=== PATIENT | female | born 1935 | race Asian ===

== ENCOUNTER 2019-06-08 10:36 | Outpatient (CLI) | payer OTHER | END 2019-06-09 05:49 | disposition home or self-care (01) | LOC: CT 10:36 | DX: I10 Essential (primary) hypertension (principal); R68.89 Other general symptoms and signs; F03.90 Unspecified dementia, unspecified severity, without behavioral disturbance, psychotic disturbance, mood disturbance, and anxiety ==

== ENCOUNTER 2019-12-01 07:02 | Outpatient (CLI) | payer OTHER ==
[2019-12-01] MEDS ORDERED: NAMENDA5 MG PO (09:06)
[2019-12-01] MEDS ORDERED: ROSUVASTATIN CA40 MG PO (09:07)
[2019-12-01] MEDS ORDERED: DILTIAZEM HCL240 M2 PO (09:09)
== END 2019-12-01 07:05 | disposition short-term general hospital (02) ==
LOC: AMB 07:02
DX: S09.90XA Unspecified injury of head, initial encounter (principal); R51 Headache; W18.39XA Other fall on same level, initial encounter; Y92.89 Other specified places as the place of occurrence of the external cause
CPT/HCPCS: A0425; A0429

== ENCOUNTER 2019-12-01 07:08 | Observation (INO) | payer OTHER ==
[2019-12-01] VITALS (10 sets, daily range): BP systolic 95–146; BP diastolic 58–85; TEMP 97.7–98.5; Ht 167.6 cm; Wt 55.8 kg
[~2019-12-01] VITALS: Ht 167.6 cm; Wt 55.8 kg
[2019-12-01 07:36] LABS: PLATELET COUNT 182 K/uL (152-353)
[2019-12-01 07:42] LABS: POTASSIUM 2.8 mmol/L (3.6-5.2)
[2019-12-01 07:51] LABS: PARTIAL THROMBOPLASTIN TIME 25.4 SECONDS (24.5-33.6)
[2019-12-01] MEDS ORDERED: NAMENDA5 MG PO (09:06)
[2019-12-01] MEDS ORDERED: ROSUVASTATIN CA40 MG PO (09:07)
[2019-12-01] MEDS ORDERED: DILTIAZEM HCL240 M2 PO (09:09)
[2019-12-02] VITALS: BP 152/82; TEMP 98.7
[2019-12-02 04:00] VITALS: BP 149/77; TEMP 98.9
[2019-12-02 04:48] LABS: PLATELET COUNT 154 K/uL (152-353)
[2019-12-02 05:13] LABS: POTASSIUM 3.5 mmol/L (3.6-5.2)
[2019-12-02 08:22] VITALS: BP 142/86; TEMP 98.3
== END 2019-12-02 17:41 | disposition home or self-care (01) ==
LOC: ED 07:12 → MED/SURG 09:25
PROVIDERS: Hospitalist; ADMIT Internal Medicine
PROC: 0HQ0XZZ Repair Scalp Skin, External Approach (ICD-10-PCS; principal; 2019-12-01)
DX: S01.01XA Laceration without foreign body of scalp, initial encounter (principal); E87.6 Hypokalemia; I25.10 Atherosclerotic heart disease of native coronary artery without angina pectoris; I10 Essential (primary) hypertension; E78.49 Other hyperlipidemia; J44.9 Chronic obstructive pulmonary disease, unspecified; M15.8 Other polyosteoarthritis; R55 Syncope and collapse; G31.84 Mild cognitive impairment of uncertain or unknown etiology; N39.0 Urinary tract infection, site not specified; E86.0 Dehydration; R62.7 Adult failure to thrive; W01.198A Fall on same level from slipping, tripping and stumbling with subsequent striking against other object, initial encounter; Y92.091 Bathroom in other non-institutional residence as the place of occurrence of the external cause
CPT/HCPCS: 36415; 80048; 80053; 81000; 82533; 82550; 83880; 84443; 84484; 85027; 85610; 85730; 93005; 93306; 99220; 99284; G0378; J1650

== ENCOUNTER 2019-12-04 13:20 | Outpatient (CLI) | payer OTHER ==
[~2019-12-04 13:20] MED LIST: DILTIAZEM HCL240 M2 PO; NAMENDA5 MG PO; ROSUVASTATIN CA40 MG PO
== END 2019-12-04 19:47 | disposition home or self-care (01) ==
LOC: MAMMO 13:20
DX: Z85.3 Personal history of malignant neoplasm of breast (principal)
CPT/HCPCS: G0279

== ENCOUNTER 2019-12-07 09:38 | Emergency (ER) | payer OTHER ==
[~2019-12-07] VITALS: Ht 157.5 cm; Wt 51.7 kg
[2019-12-07 10:35] VITALS: BP 117/61; TEMP 97.3
== END 2019-12-07 10:35 | disposition home or self-care (01) ==
LOC: ED 09:38
DX: Z48.02 Encounter for removal of sutures (principal)

== ENCOUNTER 2020-08-16 10:05 | Outpatient (CLI) | payer OTHER | END 2020-08-17 00:37 | disposition home or self-care (01) | LOC: MRI 10:05 | DX: R41.3 Other amnesia (principal); I10 Essential (primary) hypertension; E78.49 Other hyperlipidemia ==

== ENCOUNTER 2020-08-20 09:38 | Emergency (ER) | payer OTHER ==
[~2020-08-20] VITALS: Ht 170.2 cm; Wt 63.5 kg
[2020-08-20 10:43] VITALS: BP 144/72; TEMP 98.7
== END 2020-08-20 10:43 | disposition home or self-care (01) ==
LOC: ED 09:38
DX: H40.89 Other specified glaucoma (principal)
CPT/HCPCS: 99282

== ENCOUNTER 2020-12-23 09:45 | Outpatient (CLI) | payer OTHER | END 2020-12-23 21:50 | disposition home or self-care (01) | LOC: MAMMO 09:45 | PROVIDERS: ATTEND Nurse Practitioner Family | DX: Z12.31 Encounter for screening mammogram for malignant neoplasm of breast (principal); N64.59 Other signs and symptoms in breast | CPT/HCPCS: G0279 ==

== ENCOUNTER 2021-10-25 06:57 | Emergency (ER) | payer OTHER ==
[~2021-10-25] VITALS: Ht 165.1 cm; Wt 56.7 kg
[2021-10-25 07:05] VITALS: TEMP 98.3
[2021-10-25 08:21] VITALS: BP 152/69
== END 2021-10-25 08:21 | disposition home or self-care (01) ==
LOC: ED 06:57
DX: H10.89 Other conjunctivitis (principal)
CPT/HCPCS: 99282

== ENCOUNTER 2022-01-23 09:02 | Outpatient (CLI) | payer OTHER | END 2022-01-23 19:00 | disposition home or self-care (01) | LOC: MAMMO 09:02 | PROVIDERS: ATTEND Nurse Practitioner Family | DX: Z12.31 Encounter for screening mammogram for malignant neoplasm of breast (principal); N64.89 Other specified disorders of breast | CPT/HCPCS: G0279 ==

== ENCOUNTER 2022-05-07 06:56 | Emergency (ER) | payer OTHER ==
[~2022-05-07] VITALS: Ht 165.1 cm; Wt 56.7 kg
[2022-05-07 06:56] VITALS: TEMP 97.6
[2022-05-07 07:16] LABS: PLATELET COUNT 142 K/uL (152-353)
[2022-05-07 07:27] LABS: POTASSIUM 3.3 mmol/L (3.6-5.2)
[2022-05-07 07:37] LABS: PARTIAL THROMBOPLASTIN TIME 25.8 SECONDS (24.5-33.6)
[2022-05-07] MEDS ORDERED: K-TAB20 MEQ PO (09:08)
[2022-05-07 09:25] VITALS: BP 149/90
== END 2022-05-07 09:40 | disposition home or self-care (01) ==
LOC: ED 06:56
PROVIDERS: Hospitalist
DX: R10.84 Generalized abdominal pain (principal); E87.6 Hypokalemia; M51.36 Other intervertebral disc degeneration, lumbar region; W06.XXXA Fall from bed, initial encounter; Y92.89 Other specified places as the place of occurrence of the external cause
CPT/HCPCS: 80053; 81002; 83690; 85027; 85610; 85730; 96360; 96361; 96374; 96375; 99284; J1885; J2405; Q9963

== ENCOUNTER 2022-10-20 11:47 | Emergency (ER) | payer OTHER ==
[~2022-10-20] VITALS: Ht 165.1 cm; Wt 56.7 kg
[2022-10-20 11:47] VITALS: TEMP 97.7
[~2022-10-20 11:47] MED LIST changes: +K-TAB20 MEQ PO
[2022-10-20 12:46] LABS: PLATELET COUNT 151 K/uL (152-353)
[2022-10-20 12:52] LABS: POTASSIUM 3.3 mmol/L (3.6-5.2)
[2022-10-20 13:50] VITALS: BP 155/84
== END 2022-10-20 13:55 | disposition home or self-care (01) ==
LOC: ED 11:47
PROVIDERS: Emergency Medicine
DX: S00.83XA Contusion of other part of head, initial encounter (principal); W01.198A Fall on same level from slipping, tripping and stumbling with subsequent striking against other object, initial encounter; Y92.098 Other place in other non-institutional residence as the place of occurrence of the external cause
CPT/HCPCS: 36415; 80048; 85027; 90471; 90715; 99283

== ENCOUNTER 2023-04-15 10:23 | Outpatient (CLI) | payer OTHER | END 2023-04-15 19:23 | disposition home or self-care (01) | LOC: MAMMO 10:23 | PROVIDERS: ATTEND Nurse Practitioner Family | DX: N64.59 Other signs and symptoms in breast (principal) | CPT/HCPCS: G0279 ==